=== PATIENT | female | born 1985 | race African-American/Black ===

== ENCOUNTER 2016-06-18 22:40 | Emergency (ER) | payer OTHER ==
[~2016-06-18] VITALS: Ht 170.2 cm; Wt 136.9 kg
[~2016-06-18 22:40] MED LIST: AMOXICILLIN875 MG PO; BENADRYL25 MG PO; LOTENSIN10 MG PO; METFORMIN HCL500 MG PO; NOHOMEMEDS; PREDNISONE50 MG PO; RANITIDINE HCL150 M1 PO; TRAZODONE HCL50 MG PO
[2016-06-19] MEDS ORDERED: ATARAX,VISTARIL50 MG PO (00:22)
[2016-06-19] MEDS ORDERED: PEPCID20 MG PO (00:22)
[2016-06-19 00:42] VITALS: BP 204/136
== END 2016-06-19 00:42 | disposition home or self-care (01) ==
LOC: EME 22:40
DX: L50.0 Allergic urticaria (principal); T78.40XA Allergy, unspecified, initial encounter; I10 Essential (primary) hypertension; Z87.891 Personal history of nicotine dependence
CPT/HCPCS: 99281; 99283; Q0177

== ENCOUNTER 2017-01-04 13:06 | Emergency (ER) | payer OTHER ==
[~2017-01-04] VITALS: Ht 170.2 cm; Wt 122.7 kg
[~2017-01-04 13:06] MED LIST changes: +ATARAX,VISTARIL50 MG PO; +PEPCID20 MG PO
[2017-01-04 13:53] VITALS: BP 135/105
[2017-01-04] MEDS ORDERED: KETOCONAZOLE60 GM TP (15:16)
== END 2017-01-04 15:40 | disposition home or self-care (01) ==
LOC: EME 13:06
DX: B36.9 Superficial mycosis, unspecified (principal); Z79.84 Long term (current) use of oral hypoglycemic drugs; Z87.891 Personal history of nicotine dependence
CPT/HCPCS: 99281; 99284